=== PATIENT | female | born 1955 | race Caucasian/White ===

== ENCOUNTER 2020-10-10 11:04 | Outpatient (REF) | payer MEDICARE, SELFPAY ==
[2020-10-10 11:32] LABS: MANUAL DIFF FLAG NO
[2020-10-10 11:47] LABS: Basophils Percent Auto 0.7 % (0-2); Eosinophils Absolute Auto 0.2 X10*3/uL (0.0-0.4); Eosinophils Percent Auto 3.7 % (0-4); Hemoglobin 13.3 g/dl (12.0-16.0); Imm Gran Abs Auto 0.02 X10*3/uL (0.00-0.03); Imm Gran Pct Auto 0.4 % (0.0-0.4); Lymphocytes Absolute Auto 1.4 X10*3/uL (1.2-4.9); Lymphocytes Percent Auto 24.6 % (20-40); Mean Corpuscular HGB Conc 33.3 g/dl (31.0-35.0); Mean Corpuscular Hemoglobin 30.6 pg (27.0-33.0); Mean Platelet Volume 10.8 fL (9.4-12.3); Monocytes Absolute Auto 0.7 X10*3/uL (0.1-1.2); Monocytes Percent Auto 11.9 % (2-11); Neutrophils Absolute Auto 3.4 X10*3/uL (2.0-8.3); Neutrophils Percent Auto 58.7 % (45-73); Platelet Count 321 X10*3/uL (160-400); Red Blood Count 4.35 X10*6/uL (4.20-5.50); Red Cell Distribution Width 13.4 % (11.0-16.0); White Blood Count 5.7 X10*3/uL (4.8-10.8)
[2020-10-10 12:18] LABS: Alanine Aminotransferase 23 U/L (0-31); Albumin Level 4.3 g/dL (3.5-5.0); Alkaline Phosphatase 52 U/L (39-117); Anion Gap 15 (12-20); Aspartate Amino Transferase 26 U/L (5-31); Bilirubin Total 0.8 mg/dL (0.0-1.0); Blood Urea Nitrogen 13 mg/dL (9-16); Calcium 9.1 mg/dL (8.4-10.2); Carbon Dioxide 28 mmol/L (22-29); Chloride 100 mmol/L (96-108); Cholesterol 277 mg/dL; Estimated Glomerular Filt Rate > 60; Glucose Fasting 101 mg/dL (60-99); Glucose Urine UA NEG (NEG); HDL Cholesterol 104 mg/dL; LDL Cholesterol Calculated 158 mg/dl; Leukocyte Esterase Urine TRACE (NEG); Nitrite Urine NEG (NEG); Potassium 3.4 mmol/L (3.3-5.1); Sodium 140 mmol/L (135-145); Total Protein 7.3 g/dL (6.5-8.0); Triglycerides 75 mg/dL; Urine Blood TRACE (NEG); Urine Ketones NEG (NEG); Urine Protein NEG (NEG-TRACE)
[2020-10-10 12:23] LABS: Appearance Urine HAZY; Color Urine YELLOW
[2020-10-10 12:38] LABS: Mucus Urine TRACE /LPF; Renal Epithelial Cells Urine 2+ /LPF; Squamous Epithelial Cell Urine 2+ /LPF
== END 2020-10-10 11:05 | disposition home or self-care (01) ==
LOC: HO.LNP 11:04
PROVIDERS: PCP Internal Medicine; Visit Provider Internal Medicine
DX: Z00.00 Encounter for general adult medical examination without abnormal findings (principal); I10 Essential (primary) hypertension; M85.80 Other specified disorders of bone density and structure, unspecified site; E78.00 Pure hypercholesterolemia, unspecified; M19.90 Unspecified osteoarthritis, unspecified site; Z87.448 Personal history of other diseases of urinary system
CPT/HCPCS: 80053; 80061; 81001; 81003; 85025

== ENCOUNTER 2020-10-31 11:11 | Outpatient (REF) | payer MEDICARE, SELFPAY ==
--- NOTE | ~2020-10-31 | MM_ITS ---
EXAMINATION: MM SCREENING DIGITAL BREAST TOMOSYNTHESIS, BILATERAL CLINICAL INFORMATION: Screening. Asymptomatic. The lifetime risk of breast cancer based on the Tyrer-Cuzick Model is 7%. COMPARISON: Mammography: 07/28/2019, 07/22/2018, 05/15/2017 TECHNIQUE: Digital breast tomosynthesis is performed in both the craniocaudal and mediolateral oblique views along with computer-aided detection (CAD). Synthesized 2D images are generated from the tomosynthesis. FINDINGS: The breasts are heterogeneously dense, which may obscure small masses (ACR BI-RADS breast composition Category c). There are no significant masses, abnormal calcifications, or other abnormalities. There is fine fibronodular parenchymal pattern similar to prior studies. Parenchymal distribution is similar to prior exams. No significant changes. MM/MM tomosynthesis screening BI IMPRESSION: No mammographic evidence of malignancy. ASSESSMENT: BI-RADS 1: Negative RECOMMENDATION: Routine annual mammography screening. This patient's information was entered into a reminder system with a target due date for their next mammogram.
== END 2020-10-31 11:12 | disposition home or self-care (01) ==
LOC: HO.MAMMO 11:11
PROVIDERS: PCP Internal Medicine; Visit Provider Internal Medicine
DX: Z12.31 Encounter for screening mammogram for malignant neoplasm of breast (principal)
CPT/HCPCS: 77063; 77067

== ENCOUNTER 2021-05-18 13:29 | Outpatient (REF) | payer MEDICARE, SELFPAY ==
--- NOTE | ~2021-05-18 | MM_ITS ---
EXAMINATION: BONE DENSITOMETRY CLINICAL INDICATION: Osteopenia. COMPARISON: Previous BD dated 07/22/2018 and baseline BD dated 01/12/2011. TECHNIQUE: Using a [employer] DXA System (software version: 13.1) manufactured by [employer], dual-energy x-ray absorptiometry was performed of the lumbar spine and left hip. The images are of good technical quality. Summary results are attached. FINDINGS: AP SPINE L1-L4: Current: BMD 1.052 g/cm2, Z-score 0.7, T-score -1.1, osteopenia, 4.1% increase from previous, 2.3% increase from baseline (<5% change is not significant). Prior: BMD 1.011 g/cm2. Baseline: BMD 1.028 g/cm2. LEFT FEMUR, NECK: Current: BMD 0.821 g/cm2, Z-score 0.1, T-score -1.6, osteopenia. Prior: BMD 0.810 g/cm2. Baseline: BMD 0.853 g/cm2. LEFT FEMUR, TOTAL: Current: BMD 0.842 g/cm2, Z-score 0.2, T-score -1.3, osteopenia, 3.2% increase from previous, 0.6% decrease from baseline (<5% change is not significant). Prior: BMD 0.816 g/cm2. Baseline: BMD 0.847 g/cm2. IDENTIFIED RISK FACTORS: Menopause, Thiazide. HISTORY OF FRACTURE: None listed. MEDICATIONS: Calcium or multivitamin. Vitamin D. MM/XR DEXA axial skeleton IMPRESSION: 1. DIAGNOSIS: Osteopenia based on the lowest T-score value of -1.6 in the femoral neck applying World Health Organization criteria. 2. 10-YEAR FRACTURE RISK PREDICTION, FRAX: Major osteoporotic fracture (clinical spine, forearm, hip or shoulder) 9.2%. Hip fracture 1.3%. 3. Treatment Recommendations: NOF guidelines recommend consideration for treatment in postmenopausal women and men age 50 and older presenting with the following: -A hip or vertebral (clinical or morphometric) fracture. -T-score less than or equal to -2.5 at the femoral neck or spine after appropriate evaluation to exclude secondary causes. -Low bone mass at the hip or spine and a 10-year fracture probability by FRAX of greater than or equal to 3% for hip fracture or greater than or equal to 20% for major osteoporotic fracture based on the [place] adapted WHO algorithm. 4. Other Recommendations: All treatment decisions require clinical judgment and consideration of individual patient factors, including patient preferences, comorbidities, previous drug use, risk factors not captured in the FRAX model (e.g. frailty, falls, vitamin D deficiency, increased bone turnover, interval significant decline in bone density) and possible under or overestimation of fracture risk by FRAX. Additional medical evaluation for secondary cause of low bone mineral density may be appropriate. FUTURE SCAN RECOMMENDATION: People with diagnosed cases of osteoporosis or at high risk for fracture should have regular bone mineral density tests. For patients eligible for Medicare, routine testing is allowed once every 2 years. The testing frequency can be increased to one year for patients who have rapidly progressing disease, those who are receiving or discontinuing medical therapy to restore bone mass, or have additional risk factors.
== END 2021-05-18 13:30 | disposition home or self-care (01) ==
LOC: HO.MAMMO 13:29
PROVIDERS: PCP Internal Medicine; Visit Provider Internal Medicine
DX: Z13.820 Encounter for screening for osteoporosis (principal); M85.80 Other specified disorders of bone density and structure, unspecified site; Z78.0 Asymptomatic menopausal state; Z79.899 Other long term (current) drug therapy
CPT/HCPCS: 77080

== ENCOUNTER 2021-10-17 10:33 | Outpatient (REF) | payer MEDICARE, SELFPAY ==
[2021-10-17 10:36] LABS: MANUAL DIFF FLAG NO
[2021-10-17 10:42] LABS: Basophils Absolute Auto 0.1 X10*3/uL (0.0-0.2); Basophils Percent Auto 1.2 % (0-2); Eosinophils Absolute Auto 0.2 X10*3/uL (0.0-0.4); Eosinophils Percent Auto 3.8 % (0-4); Hematocrit 40.9 % (37.0-47.0); Hemoglobin 13.3 g/dl (12.0-16.0); Imm Gran Abs Auto 0.01 X10*3/uL (0.00-0.03); Imm Gran Pct Auto 0.2 % (0.0-0.4); Lymphocytes Absolute Auto 1.4 X10*3/uL (1.2-4.9); Lymphocytes Percent Auto 28.2 % (20-40); Mean Corpuscular HGB Conc 32.5 g/dl (31.0-35.0); Mean Corpuscular Hemoglobin 29.9 pg (27.0-33.0); Mean Corpuscular Volume 91.9 fL (80.0-98.0); Mean Platelet Volume 10.5 fL (9.4-12.3); Monocytes Absolute Auto 0.6 X10*3/uL (0.1-1.2); Monocytes Percent Auto 12.7 % (2-11); Neutrophils Absolute Auto 2.7 x10*3/uL (2.0-8.3); Neutrophils Percent Auto 53.9 % (45-73); Platelet Count 300 X10*3/uL (160-400); Red Blood Count 4.45 X10*6/uL (4.20-5.50); Red Cell Distribution Width 13.4 % (11.0-16.0)
[2021-10-17 11:06] LABS: Alanine Aminotransferase 22 U/L (0-31); Albumin Level 4.1 g/dL (3.5-5.0); Alkaline Phosphatase 47 U/L (39-117); Anion Gap 10 (12-20); Aspartate Amino Transferase 26 U/L (5-31); Bilirubin Total 0.7 mg/dL (0.0-1.0); Blood Urea Nitrogen 11 mg/dL (9-16); Calcium 9.7 mg/dL (8.4-10.2); Carbon Dioxide 30 mmol/L (22-29); Chloride 101 mmol/L (96-108); Cholesterol 287 mg/dL; Estimated Glomerular Filt Rate > 60; Glucose Fasting 96 mg/dL (60-99); HDL Cholesterol 92 mg/dL; LDL Cholesterol Calculated 182 mg/dl; Potassium 4.2 mmol/L (3.3-5.1); Sodium 137 mmol/L (135-145); Total Protein 7.1 g/dL (6.5-8.0); Triglycerides 67 mg/dL
[2021-10-17 11:18] LABS: Appearance Urine HAZY; Color Urine YELLOW; Glucose Urine UA NEG (NEG); Leukocyte Esterase Urine TRACE (NEG); Nitrite Urine NEG (NEG); PH 7.5 (5.0-8.0); Urine Blood TRACE (NEG); Urine Ketones NEG (NEG); Urine Protein NEG (NEG-TRACE)
[2021-10-17 11:50] LABS: Renal Epithelial Cells Urine 2+ /LPF; Squamous Epithelial Cell Urine 1+ /LPF
== END 2021-10-17 10:34 | disposition home or self-care (01) ==
LOC: HO.LNP 10:33
PROVIDERS: Visit Provider Internal Medicine
DX: Z00.00 Encounter for general adult medical examination without abnormal findings (principal); E78.00 Pure hypercholesterolemia, unspecified; I10 Essential (primary) hypertension
CPT/HCPCS: 80053; 80061; 81001; 81003; 85025

== ENCOUNTER 2021-11-07 11:15 | Outpatient (REF) | payer MEDICARE, SELFPAY ==
--- NOTE | ~2021-11-07 | MM_ITS ---
EXAMINATION: MM SCREENING DIGITAL BREAST TOMOSYNTHESIS, BILATERAL CLINICAL INFORMATION: Screening. Asymptomatic. The lifetime risk of breast cancer based on the Tyrer-Cuzick Model is 4%. COMPARISON: Mammography: 10/31/2020 and prior studies dating back to 12/24/2013. TECHNIQUE: Digital breast tomosynthesis is performed in both the craniocaudal and mediolateral oblique views along with computer-aided detection (CAD). Synthesized 2D images are generated from the tomosynthesis. FINDINGS: The breasts are heterogeneously dense, which may obscure small masses (ACR BI-RADS breast composition Category c). There is a fibronodular parenchymal pattern similar to prior studies. There is no developing density or interval mass or architectural abnormality. No abnormal calcifications. The skin contours are smooth. No significant changes from prior studies. MM/MM tomosynthesis screening BI IMPRESSION: No mammographic evidence of malignancy. ASSESSMENT: BI-RADS 1: Negative RECOMMENDATION: Routine annual mammography screening. This patient's information was entered into a reminder system with a target due date for their next mammogram.
== END 2021-11-07 11:16 | disposition home or self-care (01) ==
LOC: HO.MAMMO 11:15
PROVIDERS: PCP Internal Medicine; Visit Provider Internal Medicine
DX: Z12.31 Encounter for screening mammogram for malignant neoplasm of breast (principal)
CPT/HCPCS: 77063; 77067

== ENCOUNTER 2022-10-23 11:22 | Outpatient (REF) | payer MEDICARE, SELFPAY ==
[2022-10-23 11:24] LABS: MANUAL DIFF FLAG NO
[2022-10-23 11:38] LABS: Appearance Urine Clear; Color Urine Yellow; Glucose Urine UA Negative (Negative); Leukocyte Esterase Urine Negative (Negative); Nitrite Urine Negative (Negative); PH >= 9.0 (5.0-9.0); Specific Gravity - Urine 1.015 (1.005-1.025); UMIC TRIGGER UACC YES; Urine Blood Trace (Negative); Urine Ketones Negative (Negative); Urine Protein Negative (Neg-Trace)
[2022-10-23 11:45] LABS: Bacteria Urine None Seen (None Seen); Hyaline Casts Urine 0-2 /LPF (0-2); Squamous Epithelial Cell Urine 0-2 /HPF (0-2); WBC Urine 0-5 /HPF (0-5)
[2022-10-23 11:46] LABS: Basophils Absolute Auto 0.1 X10*3/uL (0.0-0.2); Eosinophils Absolute Auto 0.2 X10*3/uL (0.0-0.4); Eosinophils Percent Auto 3.7 % (0-4); Hematocrit 41.1 % (37.0-47.0); Hemoglobin 13.6 g/dl (12.0-16.0); Imm Gran Abs Auto 0.01 X10*3/uL (0.00-0.03); Imm Gran Pct Auto 0.2 % (0.0-0.4); Lymphocytes Absolute Auto 1.3 X10*3/uL (1.2-4.9); Lymphocytes Percent Auto 25.5 % (20-40); Mean Corpuscular HGB Conc 33.1 g/dl (31.0-35.0); Mean Corpuscular Hemoglobin 29.9 pg (27.0-33.0); Mean Corpuscular Volume 90.3 fL (80.0-98.0); Mean Platelet Volume 11.4 fL (9.4-12.3); Monocytes Absolute Auto 0.6 X10*3/uL (0.1-1.2); Monocytes Percent Auto 12.4 % (2-11); Neutrophils Percent Auto 57.2 % (45-73); Platelet Count 318 X10*3/uL (160-400); Red Blood Count 4.55 X10*6/uL (4.20-5.50); Red Cell Distribution Width 13.2 % (11.0-16.0); White Blood Count 5.2 X10*3/uL (4.8-10.8)
[2022-10-23 12:57] LABS: Alanine Aminotransferase 20 U/L (0-31); Albumin Level 4.2 g/dL (3.5-5.0); Alkaline Phosphatase 47 U/L (39-117); Anion Gap 13 (12-20); Aspartate Amino Transferase 24 U/L (5-31); Bilirubin Total 0.7 mg/dL (0.0-1.0); Blood Urea Nitrogen 12 mg/dL (9-16); Calcium 9.2 mg/dL (8.4-10.2); Carbon Dioxide 29 mmol/L (22-29); Chloride 99 mmol/L (96-108); Cholesterol 272 mg/dL; Estimated Glomerular Filt Rate > 60; Glucose Fasting 98 mg/dL (60-99); HDL Cholesterol 94 mg/dL; LDL Cholesterol Calculated 162 mg/dl; Potassium 4.1 mmol/L (3.3-5.1); Sodium 137 mmol/L (135-145); Triglycerides 80 mg/dL
== END 2022-10-23 11:23 | disposition home or self-care (01) ==
LOC: HO.LNP 11:22
PROVIDERS: Visit Provider Internal Medicine
DX: Z00.00 Encounter for general adult medical examination without abnormal findings (principal); I10 Essential (primary) hypertension; E78.00 Pure hypercholesterolemia, unspecified
CPT/HCPCS: 80053; 80061; 81001; 85025

== ENCOUNTER 2022-11-13 11:20 | Outpatient (REF) | payer MEDICARE, SELFPAY ==
--- NOTE | ~2022-11-13 | MM_ITS ---
EXAMINATION: MM SCREENING DIGITAL BREAST TOMOSYNTHESIS, BILATERAL CLINICAL INFORMATION: Screening. Asymptomatic. The lifetime risk of breast cancer based on the Tyrer-Cuzick Model is 3%. COMPARISON: Mammography: 09/07/2021, 10/31/2020, 07/28/2019 TECHNIQUE: Digital breast tomosynthesis is performed in both the craniocaudal and mediolateral oblique views along with computer-aided detection (CAD). Synthesized 2D images are generated from the tomosynthesis. FINDINGS: The breasts are heterogeneously dense, which may obscure small masses (ACR BI-RADS breast composition Category c). There is fine fibronodular parenchymal pattern similar to prior studies. Breast tissue composition borders on average fibroglandular. There is no developing density or architectural abnormality. There are no significant masses, abnormal calcifications, or other abnormalities. The axilla and skin contours are unremarkable. No significant changes from prior exams. MM/MM tomosynthesis screening BI IMPRESSION: No mammographic evidence of malignancy. ASSESSMENT: BI-RADS 1: Negative RECOMMENDATION: Routine annual mammography screening. This patient's information was entered into a reminder system with a target due date for their next mammogram.
== END 2022-11-13 11:21 | disposition home or self-care (01) ==
LOC: HO.MAMMO 11:20
PROVIDERS: PCP Internal Medicine; Visit Provider Internal Medicine
DX: Z12.31 Encounter for screening mammogram for malignant neoplasm of breast (principal)
CPT/HCPCS: 77063; 77067

== ENCOUNTER 2023-11-14 12:07 | Outpatient (REF) | payer MEDICARE, SELFPAY ==
[2023-11-14 12:11] LABS: MANUAL DIFF FLAG NO
[2023-11-14 12:20] LABS: Basophils Absolute Auto 0.1 X10*3/uL (0.0-0.2); Eosinophils Absolute Auto 0.3 X10*3/uL (0.0-0.4); Eosinophils Percent Auto 5.2 % (0-4); Hematocrit 39.7 % (37.0-47.0); Hemoglobin 13.2 g/dl (12.0-16.0); Imm Gran Abs Auto 0.01 X10*3/uL (0.00-0.03); Imm Gran Pct Auto 0.2 % (0.0-0.4); Lymphocytes Absolute Auto 1.3 X10*3/uL (1.2-4.9); Mean Corpuscular HGB Conc 33.2 g/dl (31.0-35.0); Mean Corpuscular Hemoglobin 30.5 pg (27.0-33.0); Mean Corpuscular Volume 91.7 fL (80.0-98.0); Mean Platelet Volume 10.4 fL (9.4-12.3); Monocytes Absolute Auto 0.7 X10*3/uL (0.1-1.2); Monocytes Percent Auto 14.5 % (2-11); Neutrophils Absolute Auto 2.5 x10*3/uL (2.0-8.3); Neutrophils Percent Auto 52.1 % (45-73); Platelet Count 312 X10*3/uL (160-400); Red Blood Count 4.33 X10*6/uL (4.20-5.50); Red Cell Distribution Width 13.9 % (11.0-16.0); White Blood Count 4.8 X10*3/uL (4.8-10.8)
[2023-11-14 12:27] LABS: Appearance Urine Clear; Color Urine Yellow; Glucose Urine UA Negative (Negative); Leukocyte Esterase Urine Negative (Negative); Nitrite Urine Negative (Negative); UMIC TRIGGER UACC YES; Urine Blood Trace (Negative); Urine Ketones Negative (Negative); Urine Protein Negative (Neg-Trace)
[2023-11-14 12:34] LABS: Bacteria Urine None Seen (None Seen); Hyaline Casts Urine 0-2 /LPF (0-2); Squamous Epithelial Cell Urine 0-2 /HPF (0-2); WBC Urine 0-5 /HPF (0-5)
[2023-11-14 13:50] LABS: Alanine Aminotransferase 24 U/L (0-31); Alkaline Phosphatase 46 U/L (39-117); Anion Gap 12 (12-20); Aspartate Amino Transferase 27 U/L (5-31); Bilirubin Total 0.5 mg/dL (0.0-1.0); Blood Urea Nitrogen 13 mg/dL (9-16); Calcium 9.2 mg/dL (8.4-10.2); Carbon Dioxide 28 mmol/L (22-29); Chloride 100 mmol/L (96-108); Cholesterol 263 mg/dL (<200); Estimated Glomerular Filt Rate > 60; Glucose Fasting 100 mg/dL (60-99); HDL Cholesterol 91 mg/dL (>40); LDL Cholesterol Calculated 157 mg/dL (<100); Potassium 3.7 mmol/L (3.3-5.1); Sodium 136 mmol/L (135-145); Total Protein 7.2 g/dL (6.5-8.0); Triglycerides 79 mg/dL (<150)
== END 2023-11-14 12:08 | disposition home or self-care (01) ==
LOC: HO.LNP 12:07
PROVIDERS: Visit Provider Internal Medicine
DX: Z00.00 Encounter for general adult medical examination without abnormal findings (principal); I10 Essential (primary) hypertension; E78.00 Pure hypercholesterolemia, unspecified
CPT/HCPCS: 80053; 80061; 81001; 85025

== ENCOUNTER 2023-11-19 11:23 | Outpatient (REF) | payer MEDICARE, SELFPAY | END 2023-11-19 11:24 | disposition home or self-care (01) | LOC: HO.MAMMO 11:23 | PROVIDERS: PCP Internal Medicine; Visit Provider Internal Medicine | DX: Z12.31 Encounter for screening mammogram for malignant neoplasm of breast (principal) | CPT/HCPCS: 77063; 77067 ==

== ENCOUNTER → 2023-11-19 11:30 | Outpatient (BNV) | payer MEDICARE, SELFPAY | PROVIDERS: PCP Internal Medicine; Visit Provider Radiology Diagnostic Radiology | DX: Z12.31 Encounter for screening mammogram for malignant neoplasm of breast (principal) | CPT/HCPCS: 77063; 77067 ==

== ENCOUNTER → 2023-12-17 08:35 | Outpatient (REF) | payer MEDICARE, SELFPAY ==
--- NOTE | 2023-12-17 08:38 | CA_ITS ---
Acquisition Time: 2023-12-17 08:56:07 Total Exercise Time: 00:09:01 Test Indications: HTN Medications: SEE H Protocol: MILLER Max HR: 133 BPM 88% of Pred: 150 BPM Max BP: 170/068 mmHG Max Work Load: 10.1 METS Exercise stress test with exercise 9 min 1 sec of Miller protocol, achieving 88% MPHR, without anginal symptoms, without arrythmia, with normotensive response to exercise, with nonspecific ST abnormality at baseline then up to 1.5mm horizontal ST depression inferiorly and V3-V6 with exercise, that improves quickly in recovery then becomes downsloping STs in those leads and gradualy return to baseline. Test reviewed with Dr Fitzgerald. Report called to PCP office. Recommend stress echocardiogram for further evaluation. Referred By: Jesus Manuel Garcia Overread By: CHONG GUPTA
== END ==
LOC: HO.CARD 08:35
PROVIDERS: PCP Internal Medicine; Visit Provider Internal Medicine
DX: R07.89 Other chest pain (principal)
CPT/HCPCS: 93017

== ENCOUNTER → 2023-12-17 08:38 | Outpatient (BNV) | payer MEDICARE, SELFPAY | PROVIDERS: PCP Internal Medicine; Visit Provider Nurse Practitioner Family | DX: I10 Essential (primary) hypertension (principal); R94.31 Abnormal electrocardiogram [ECG] [EKG] | CPT/HCPCS: 93016; 93018 ==

== ENCOUNTER 2024-01-31 08:29 | Outpatient (AMB) | payer MEDICARE, SELFPAY ==
[2024-01-31 08:35] VITALS: BP 138/70; PULSE 59; BMI 22.1
--- NOTE | 2024-01-31 08:35 | A.OFFVIS_ITS ---
Vital Signs 01/31/24 08:35 Height 5 ft 6 in Weight 136 lb 10.986 oz BMI 22.1 BP 138/70 Blood Pressure Location Lt brachial Position Sitting Pulse 59 Pulse Source Monitor Intake Visit Reasons: Tightness in chest Allergies Penicillins Allergy (Severe, Verified 01/31/24 08:48) Palpitations procaine [From Novocain] Allergy (Severe, Verified 01/31/24 08:49) Palpitations ibuprofen Allergy (Mild, Verified 01/31/24 08:48) Palpitations sodium Adverse Reaction (Severe, Verified 01/31/24 08:48) Nausea Medication List - Last Reconciled 01/31/24 by Karuna Harley NP-C hydrochlorothiazide 25 mg PO DAILY lorazepam 1 mg PO PRN metoprolol tartrate 25 mg PO TID HPI HPI Tightness in chest: Details: Katerine is a 68-year-old female with past medical history of hypertension who recently had an episode of chest pressure during exercise who then had exercise stress test which was equivocal for ischemia. She was referred to Cardiology in follow-up. Today she presents for cardiology consultation. She describes having chest pressure on 1 day when doing the stationary bike. She was trying to keep up with the speed of her friend. Whenever she would go fast she would get a pressure/tightness in the chest. The symptom would resolve when she slowed down. She has not pushed herself like that again. She has not had recurrent symptoms. She denies shortness of breath, PND, orthopnea or edema. No lightheadedness, presyncope, syncope, falls. She has no cardiac history. She states her father had a pacemaker at age 80 and a CVA at age 81. No other cardiac disease in her family. She is a nonsmoker and occasional alcohol use. She goes to the gym 2-3 times weekly and does yoga 2 times weekly. She is compliant with her medications. [facility] Medical History Cataract Meniere disease Family History Father Pacemaker Sister High blood pressure Social History Alcohol intake: current Alcohol intake frequency: holidays/special occasions only Comment: WINE Patient Tobacco Use Status: Never used Tobacco Review of Systems Const All systems reviewed & are unremarkable except as noted in HPI and below Reports fatigue (Tires easily with activity in the last 6 months) and Denies weakness ENT Denies dizziness Card Details: Episode of chest pressure with exertion Denies chest pain, Denies chest pain at rest, Reports chest pain with activity, Denies syncope, Denies rapid heart rate, Denies pedal edema, Denies edema, Denies leg edema, Denies lightheadedness, Denies palpitations, Denies dyspnea, Denies dyspnea on exertion and Denies orthopnea Resp Denies cough, Denies dyspnea and Denies dyspnea on exertion GI Denies hematochezia and Denies change in stool character Musc Denies abnormal gait, Denies muscle cramps, Denies muscle weakness, Denies numbness, Denies radiating pain into limb and Denies tingling Neuro Denies abnormal gait, Denies dizziness, Denies syncope, Denies numbness, Denies tingling and Denies weakness Endo Reports fatigue (Tires easily with activity in the last 6 months) and Denies palpitations Physical Exam Vital Signs: Last Vital Signs Pulse 59 01/31/24 08:35 BP 138/70 01/31/24 08:35 BMI result Body Mass Index 22.1 Const General: cooperative, healthy appearing, comfortable and no acute distress Orientation/consciousness: patient oriented x3 Neck Neck: Yes normal visual inspection and Yes no JVD Resp Effort & Inspection: normal respiratory effort Auscultation: clear to auscultation bilaterally, no crackles, no rales, no rhonchi and no wheezes Cardio Jugular venous distension: no JVD Rate: regular rate Rhythm: regular rhythm Heart sounds: S1 normal heart sound present, S2 normal heart sound present, no murmurs and no rubs Neuro General: patient oriented x3 Extrem General: Yes normal to inspection and No no pedal edema Psych Appearance: grossly normal Mental Status: mental status grossly normal Speech and movement: Normal speech and movement present Office Procedures EKG Details: Today read by me, sinus bradycardia, first-degree AV block, right axis deviation, nonspecific ST abnormality, rate 59, QTC 401 milliseconds. [id number], Complete Assessment & Plan Assessment & Plan (1) Chest discomfort: Code(s): R07.89 - Other chest pain Category: Medical Plan: Report of chest discomfort as described above occurring on 1 day during physical activity. She tells me she has not had recurrent symptoms like that. She has no cardiac history. Cardiac risk factors of hypertension, age. She did have a stress test on 12/17/2023 showing exercise 9 minutes with no anginal symptoms with EKG changes that are suggestive of ischemia. A recent calcium score was completed and her score was 0. This is very reassuring. EKG done today shows normal sinus rhythm, first-degree AV block, nonspecific ST abnormality with slight downsloping in the far lateral leads, rate 59, QTC 401 milliseconds. Will check a stress echocardiogram to further evaluate for ischemia. Will check an echocardiogram to assess for structural heart disease. Signs and symptoms of angina reviewed with her. Emergency care if ever needed for symptoms. Activity as tolerated. Cardiology follow-up 6 weeks, sooner if needed. (2) HTN (hypertension): Code(s): I10 - Essential (primary) hypertension Category: Medical Plan: Well controlled at this time. Continue metoprolol and hydrochlorothiazide. No med changes made. (3) Abnormal EKG: Code(s): R94.31 - Abnormal electrocardiogram [ECG] [EKG] Category: Medical Plan: As above Plan Time spent on chart review, documentation, intravenous assessment Orders: Orders CA echo transthoracic complete Today I10 - Essential (primary) hypertension, R07.89 - Other chest pain, R94.31 - Abnormal electrocardiogram [ECG] [EKG] CA echo stress exercise Today R07.89 - Other chest pain, R94.31 - Abnormal electrocardiogram [ECG] [EKG] Coding Level of Care Code New Pt Level 4 (56261) Diagnoses Chest discomfort R07.89 HTN (hypertension) I10 Abnormal EKG R94.31 CPT Codes EKG - CPT: 20057-[id number], Complete ([id number]) Time Spent (min) 36
== END 2024-01-31 09:24 | disposition home or self-care (01) ==
PROVIDERS: PCP Internal Medicine; Visit Provider Nurse Practitioner Family
DX: R07.89 Other chest pain (principal); I10 Essential (primary) hypertension; R94.31 Abnormal electrocardiogram [ECG] [EKG]
CPT/HCPCS: 93010; 99214

== ENCOUNTER → 2024-01-31 08:29 | Outpatient (BNVA) | payer MEDICARE, SELFPAY | PROVIDERS: PCP Internal Medicine; Visit Provider Nurse Practitioner Family | DX: R94.31 Abnormal electrocardiogram [ECG] [EKG] (principal); R07.89 Other chest pain; I10 Essential (primary) hypertension; I44.0 Atrioventricular block, first degree; I51.7 Cardiomegaly | CPT/HCPCS: 93005; 99212 ==

== ENCOUNTER → 2024-03-18 09:56 | Outpatient (REF) | payer MEDICARE, SELFPAY ==
--- NOTE | 2024-03-18 09:58 | CA_ITS ---
Transthoracic Echocardiogram Patient (Last, First, Middle): Katerine Cormier A Gender: Female Date of : 1955 Age: 69 Procedure Date: 03/18/2024 Procedure Type: Transthoracic Echocardiogram Location: OP Height: 165.1 cm Weight: 59.88 kg BSA: 1.66 m2 Heart Rate: bpm BP: 138 / 68 mmHg Target Aircraft Technician: TO Referring MD: Karuna MIX Utility Manager: Reddy Paige MD Symptoms: R07.89 - Other chest pain Study Quality: Fair/patient declines contrast ECG Rhythm: Sinus Conclusions: - 1. Normal LV ejection fraction 60 65% with impaired relaxation filling pattern 2. Mild mitral regurgitation 3. No gross pericardial effusion Findings Procedure Information The patient declines contrast. Left Ventricle Normal left ventricular size, thickness, and systolic function. The visually estimated ejection fraction is between 60-65%. Spectral Doppler is indicative of an impaired relaxation filling pattern. E/E prime ratio is between 8 and 15 consistent with indeterminate filling pressures. Right Ventricle Normal right ventricular cavity size and systolic function. Atria The left atrium is normal in size. There is no evidence of interatrial shunt. The right atrium is normal in size. Aortic Valve Normal aortic valve structure and function. There is no aortic valve stenosis. There is no aortic valve regurgitation. Mitral Valve There is mild anterior and posterior mitral leaflet thickening. There is mild mitral valve regurgitation. There is no mitral valve stenosis. Pulmonic Valve The pulmonic valve is likely normal. Tricuspid Valve Likely normal tricuspid valve structure and function. Tricuspid regurgitation envelope is inadequate for calculation of right ventricular systolic pressure. Normal right atrial pressure. Great Vessels All visible segments of the aorta are normal in size. The pulmonary artery was not well visualized. Venous The inferior vena cava is normal in size and collapses greater than 50% with inspiration. Pericardium/Pleural There is no evidence of pericardial effusion. Prior Study Comparison No prior study available for comparison. Measurements 2D Linear Measurements IVSd: 0.85 0.6-0.9/0.6-1.0 cm LVIDd: 4.40 3.9-5.3/4.2-5.9 cm LVIDd Index: 2.65 2.4-3.2/2.2-3.1 cm/m2 LVIDs: 3.21 2.0-3.6 cm LVPWd: 0.73 0.7-1.1 cm LA Diam: 3.20 2.7-3.8/3.0-4.0 cm LAIDs Index: 1.93 1.5-2.3 cm/m2 LV Mass: 134.59 67-162/88-224 g LV Mass Index: 81.08 43-95/49-115 g/m2 LVOT Diam: 2.10 3.0+(-)1.3 cm Mitral Valve MV Pk E: 0.81 MV PK A: 0.54 MV Decel Time: 195.00 E/A: 1.50 E'Lateral: 7.62 E'Medial: 5.66 E/E' Med: 14.30 E/E' Lat: 10.60 PHT: 57.00 MVA PHT: 3.86 Decel Gulf: 4.15 Aortic Valve AoV Pk Shaun: 0.93 AoV Mn Shaun: 0.69 AoV VTI: 0.27 AoV Pk Grad: 3.00 Aov Mn Grad: 2.00 HIEN Cont.VTI: 2.17 LVOT LVOT Pk Shaun: 0.63 LVOT Mn Shaun: 0.42 LVOT VTI: 0.17 LVOT Pk Grad: 2.00 LVOT Mn Grad: 1.00 LVOT Diam: 2.10 LVOT Area: 3.46 Diastolic Function MV Pk E: 0.81 MV Pk A: 0.54 E/A: 1.50 E'Medial: 5.66 E/E' Med: 14.30 E' Laterial: 7.62 E/E' Lat: 10.60 Right Ventricle TAPSE (mm): 17.70 TVS' Shaun: 10.40 Tricuspid Valve RA Press: 3.00 Great Vessels Aorta Sinus of Valsalva: 3.11 2.0-3.5 cm Ao Asc: 3.00 2.1-3.4 cm Updated in Other Vendor System with Status of Final Reddy Paige MD electronically signed on 03/19/2024 12:04:36 PM with status of Final
== END ==
LOC: HO.CARD 09:56
PROVIDERS: PCP Internal Medicine; Visit Provider Nurse Practitioner Family
DX: R07.89 Other chest pain (principal); R94.31 Abnormal electrocardiogram [ECG] [EKG]; I10 Essential (primary) hypertension
CPT/HCPCS: 93306

== ENCOUNTER → 2024-03-18 09:58 | Outpatient (BNV) | payer MEDICARE, SELFPAY | PROVIDERS: PCP Internal Medicine; Visit Provider Internal Medicine Cardiovascular Disease | DX: I34.0 Nonrheumatic mitral (valve) insufficiency (principal) | CPT/HCPCS: 93306 ==

== ENCOUNTER → 2024-03-26 10:59 | Outpatient (REF) | payer MEDICARE, SELFPAY ==
--- NOTE | 2024-03-26 11:01 | CA_ITS ---
Acquisition Time: 2024-03-26 11:16:01 Total Exercise Time: 00:10:00 Test Indications: Chest Pain Medications: HCTZ METOPROLOL LORAZAPAM Protocol: MILLER Max HR: 150 BPM 100% of Pred: 149 BPM Max BP: 178/060 mmHG Max Work Load: 11.7 METS Exercise stress test exercise 10 min of Miller protocol achieving 101% MPHR, without anginal symptoms, with isolated PACs and PVC, with normotensive response to exercise, with ST depressions in leads 2, 3, aVF, V5-V6 and upsloping in leads aVR and V1 V2, Echo images obtained by [employer] at rest and immediately post peak exercise. Definity contrast used. Test reviewed with Dr. Cabrera Referred By: Karuna Harley Overread By: Sheri Cueva
== END ==
LOC: HO.CARD 10:59
PROVIDERS: PCP Internal Medicine; Visit Provider Nurse Practitioner Family
DX: R07.89 Other chest pain (principal); R94.31 Abnormal electrocardiogram [ECG] [EKG]
CPT/HCPCS: 93350; Q9957

== ENCOUNTER → 2024-03-26 11:01 | Outpatient (BNV) | payer MEDICARE, SELFPAY | PROVIDERS: PCP Internal Medicine; Visit Provider Nurse Practitioner | DX: R07.9 Chest pain, unspecified (principal); I49.3 Ventricular premature depolarization; I49.1 Atrial premature depolarization | CPT/HCPCS: 93016; 93018; 93350; 93352 ==

== ENCOUNTER 2024-03-30 12:48 | Outpatient (AMB) | payer MEDICARE, SELFPAY ==
--- NOTE | 2024-03-30 12:54 | MHC.OFFVIS ---
Vital Signs 03/30/24 12:55 Height 5 ft 6 in Weight 138 lb 0.15 oz BMI 22.3 BP 132/60 Blood Pressure Location Lt brachial Position Sitting Pulse 57 Pulse Source Pulse Oximeter Intake Visit Reasons: 6 wk follow up Measurement Coordinator Required: No Allergies Penicillins Allergy (Severe, Verified 03/30/24 12:57) Palpitations procaine [From Novocain] Allergy (Severe, Verified 03/30/24 12:57) Palpitations ibuprofen Allergy (Mild, Verified 03/30/24 12:57) Palpitations sodium Adverse Reaction (Severe, Verified 03/30/24 12:57) Nausea Medication List - Last Reconciled 03/30/24 by Karuna Harley NP-C hydrochlorothiazide 25 mg PO DAILY lorazepam 1 mg PO PRN metoprolol tartrate 25 mg PO TID HPI HPI 6 wk follow up: Details: Katerine is a 69-year-old female with past medical history of hypertension who recently had an episode of chest pressure during exercise who then had exercise stress test which was equivocal for ischemia. She was referred to Cardiology. On last visit a echocardiogram and stress echo were ordered and she now presents for follow-up. Today she reports that she has been doing well since her last visit in January. She has not had any recurrent chest discomfort. She tells me she has not been doing the exercise like she had been in the past. She was on her stationary bike when she developed the prior episode of chest pressure. She did not have chest discomfort when she was on the treadmill for her 2 stress tests. She denies shortness of breath , PND, orthopnea or edema. No lightheadedness, presyncope, syncope, falls. She has no cardiac history. She is a lifelong nonsmoker and occasional social alcohol use. She typically goes to the gym 2-3 times weekly and does yoga 2 times weekly. She is compliant with her medications. is present. [facility], [facility] Medical History Cataract Meniere disease Family History Father Pacemaker Sister High blood pressure Social History Alcohol intake: current Alcohol intake frequency: holidays/special occasions only Comment: WINE Patient Tobacco Use Status: Never used Tobacco Review of Systems Const All systems reviewed & are unremarkable except as noted in HPI and below ENT Denies dizziness Card Denies chest pain, Denies chest pain at rest, Denies chest pain with activity, Denies rapid heart rate, Denies pedal edema, Denies edema, Denies leg edema, Denies lightheadedness, Denies palpitations, Denies dyspnea, Denies dyspnea on exertion and Denies orthopnea Resp Denies cough, Denies dyspnea and Denies dyspnea on exertion GI Denies hematochezia and Denies change in stool character Musc Denies abnormal gait, Denies limited range of motion, Denies muscle cramps, Denies muscle weakness, Denies numbness, Denies radiating pain into limb, Denies stiffness and Denies tingling Neuro Denies abnormal gait, Denies dizziness, Denies numbness and Denies tingling Endo Denies palpitations Physical Exam Vital Signs: Last Vital Signs Pulse 57 03/30/24 12:55 BP 132/60 03/30/24 12:55 BMI result Body Mass Index 22.3 Const General: cooperative, healthy appearing, comfortable and no acute distress Orientation/consciousness: patient oriented x3 Neck Neck: Yes normal visual inspection Resp Effort & Inspection: normal respiratory effort Auscultation: clear to auscultation bilaterally, no crackles, no rales, no rhonchi and no wheezes Cardio Jugular venous distension: no JVD Rate: regular rate Rhythm: regular rhythm Heart sounds: S1 normal heart sound present, S2 normal heart sound present, no murmurs and no rubs Neuro General: patient oriented x3 Extrem General: Yes normal to inspection, No no pedal edema and No calf tenderness Psych Appearance: grossly normal Mental Status: mental status grossly normal Speech and movement: Normal speech and movement present Assessment & Plan Assessment & Plan (1) Chest discomfort: Code(s): R07.89 - Other chest pain Category: Medical Plan: Report of an episode of chest pressure when using her exercise bike on 1 occasion a few months ago. She tells me she has not had recurrent symptoms since that time. She has no cardiac history. Cardiac risk factors of hypertension, age. She did have a stress test on 12/17/2023 showing exercise 9 minutes with no anginal symptoms with EKG changes that are suggestive of ischemia. A recent calcium score was completed and her score was 0. This is very reassuring. EKG done last visit shows normal sinus rhythm, first-degree AV block, nonspecific ST abnormality with slight downsloping in the far lateral leads, rate 59, QTC 401 milliseconds. An echocardiogram was done on 03/18/2024 showing EF 60-65%, impaired relaxation, mild MR, no reported regional wall motion abnormalities. A stress echocardiogram was done on 03/26/2024 with exercise 10 minutes, no anginal symptoms, with EKG changes noted however no echo evidence of ischemia, diastolic dysfunction or pulmonary hypertension. Test results reviewed with her ideal. She has low likely illness of having obstructive coronary artery disease. Her EKG changes seen during activity could be false-positive. Informed her she may resume her normal exercise and activity program. If she does have recurrent chest discomfort with exertion then will plan to do a CTA of the coronary arteries. She is agreeable to this plan. Signs and symptoms of angina reviewed with her. Cardiology follow-up for reassessment in 6 months, sooner if needed. (2) HTN (hypertension): Code(s): I10 - Essential (primary) hypertension Category: Medical Plan: Well controlled at this time. Continue metoprolol and hydrochlorothiazide. No med changes made. (3) Abnormal EKG: Code(s): R94.31 - Abnormal electrocardiogram [ECG] [EKG] Category: Medical Plan: As above Plan Time spent on chart review, documentation, intravenous assessment Coding Level of Care Code Est Pt Level 3 (63590) Diagnoses Chest discomfort R07.89 HTN (hypertension) I10 Abnormal EKG R94.31 Time Spent (min) 24
[2024-03-30 12:55] VITALS: BP 132/60; PULSE 57; BMI 22.3
== END 2024-03-30 13:23 | disposition home or self-care (01) ==
PROVIDERS: PCP Internal Medicine; Referring Provider Internal Medicine; Visit Provider Nurse Practitioner Family
DX: R07.89 Other chest pain (principal); I10 Essential (primary) hypertension; R94.31 Abnormal electrocardiogram [ECG] [EKG]
CPT/HCPCS: 99213

== ENCOUNTER → 2024-03-30 12:48 | Outpatient (BNVA) | payer MEDICARE, SELFPAY | PROVIDERS: PCP Internal Medicine; Visit Provider Nurse Practitioner Family | DX: R07.89 Other chest pain (principal); R94.31 Abnormal electrocardiogram [ECG] [EKG]; I10 Essential (primary) hypertension | CPT/HCPCS: 99212 ==

== ENCOUNTER 2024-10-15 12:52 | Outpatient (AMB) | payer MEDICARE, SELFPAY ==
[2024-10-15 12:55] VITALS: BP 138/60; PULSE 57; BMI 22.4
--- NOTE | 2024-10-15 12:55 | MHC.OFFVIS ---
Vital Signs 10/15/24 12:55 Height 5 ft 6 in Weight 138 lb 14.259 oz BMI 22.4 BP 138/60 Blood Pressure Location Lt brachial Position Sitting Pulse 57 Pulse Source Pulse Oximeter Intake Visit Reasons: 6 mth f/up Allergies Penicillins Allergy (Severe, Verified 10/15/24 12:58) Palpitations procaine [From Novocain] Allergy (Severe, Verified 10/15/24 12:58) Palpitations ibuprofen Allergy (Mild, Verified 10/15/24 12:58) Palpitations sodium Adverse Reaction (Severe, Verified 10/15/24 12:58) Nausea Medication List - Last Reconciled 10/15/24 by Karuna Harley, [employer] hydrochlorothiazide 25 mg PO DAILY lorazepam 1 mg PO PRN metoprolol tartrate 25 mg PO TID HPI HPI 6 mth f/up: Details: Katerine is a 69-year-old female with past medical history of hypertension who previously reported an episode of chest pressure during exercise who underwent cardiac testing without finding of CAD. Have abnormal EKGs with exercise stress test however no echo evidence of ischemia. She now presents for follow-up. Today she reports that she has been doing well since her last visit 6 months ago. She has not had any recurrent chest discomfort. She goes to the gym routinely and does stationary bike, treadmill and goes for hikes. She also does yoga 2 times weekly. She has no concerning symptoms. She has been taking her metoprolol t.i.d. which works for her. She is not interested in changing this pattern. She denies shortness of breath , PND, orthopnea or edema. No lightheadedness, presyncope, syncope, falls. [facility] Medical History Cataract Meniere disease Family History Father Pacemaker Sister High blood pressure Social History Alcohol intake: current Alcohol intake frequency: holidays/special occasions only Comment: WINE Patient Tobacco Use Status: Never used Tobacco Review of Systems ENT Reports dizziness Card Denies chest pain, Denies chest pain at rest, Denies chest pain with activity, Denies rapid heart rate, Denies pedal edema, Denies edema, Denies leg edema, Denies lightheadedness, Denies palpitations, Denies dyspnea, Denies dyspnea on exertion and Denies orthopnea Resp Denies cough, Denies dyspnea and Denies dyspnea on exertion GI Denies hematochezia and Denies change in stool character Musc Denies abnormal gait, Reports limited range of motion, Reports muscle cramps, Denies muscle weakness, Denies numbness, Denies radiating pain into limb, Denies stiffness and Denies tingling Neuro Denies abnormal gait, Reports dizziness, Denies numbness and Denies tingling Endo Denies palpitations Physical Exam Vital Signs: BMI result Body Mass Index 22.4 Const General: cooperative, healthy appearing, comfortable and no acute distress Orientation/consciousness: patient oriented x3 Neck Neck: Yes normal visual inspection Resp Effort & Inspection: normal respiratory effort Auscultation: clear to auscultation bilaterally, no crackles, no rales, no rhonchi and no wheezes Cardio Jugular venous distension: no JVD Rate: regular rate Rhythm: regular rhythm Heart sounds: S1 normal heart sound present, S2 normal heart sound present, no murmurs and no rubs Neuro General: patient oriented x3 Extrem General: Yes normal to inspection, No no pedal edema and No calf tenderness Psych Appearance: grossly normal Mental Status: mental status grossly normal Speech and movement: Normal speech and movement present Assessment & Plan Assessment & Plan (1) Chest discomfort: Code(s): R07.89 - Other chest pain Category: Medical Plan: One episode of chest pressure last year when using her exercise bike. She tells me she has not had recurrent symptoms since that time. Cardiac risk factors of hypertension, age. She did have a stress test on 12/17/2023 showing exercise 9 minutes with no anginal symptoms with EKG changes that are suggestive of ischemia. A recent calcium score was completed and her score was 0. This is very reassuring. EKG done last visit shows normal sinus rhythm, first-degree AV block, nonspecific ST abnormality with slight downsloping in the far lateral leads, rate 59, QTC 401 milliseconds. An echocardiogram was done on 03/18/2024 showing EF 60-65%, impaired relaxation, mild MR, no reported regional wall motion abnormalities. A stress echocardiogram was done on 03/26/2024 with exercise 10 minutes, no anginal symptoms, with EKG changes noted however no echo evidence of ischemia, diastolic dysfunction or pulmonary hypertension. She is low risk for having obstructive coronary artery disease. Currently no change to her symptoms and she has good exercise tolerance. Signs and symptoms of angina reviewed with her. Offered cardiology 1 year follow-up and she would prefer p.r.n. follow-up. (2) HTN (hypertension): Code(s): I10 - Essential (primary) hypertension Category: Medical Plan: Well controlled at this time. Continue metoprolol and hydrochlorothiazide. No med changes made. (3) Abnormal EKG: Code(s): R94.31 - Abnormal electrocardiogram [ECG] [EKG] Category: Medical Plan: As above Plan Time spent on chart review, documentation, interview assessment Coding Level of Care Code Est Pt Level 3 (62645) Complex EM visit Add On G2211 Diagnoses Chest discomfort R07.89 HTN (hypertension) I10 Abnormal EKG R94.31 Time Spent (min) 24
--- OUTSIDE RECORDS SUMMARY | 2024-10-15 15:39 | XMS_ITS ---
Author Organization Jesus Manuel Garcia MD Address [address] [place] [phone] Care Team Providers Care Manager Motor Name Role Phone Jesus Manuel Garcia Primary Care Provider REASON FOR VISIT Stess test results Encounters Encounter Location Date Provider Diagnosis Jesus Manuel Garcia MD [address] [place] [address] [address] [place] [phone] 12/17/2023 Jesus Manuel Garcia Plan Of Treatment Next Appt Details Provider Name:Jesus Manuel Mckeon iemary, 12/01/2024 07:45:00 AM, [address] [place] [address], [address], [phone], Provider Name:Jesus Manuel panchal, 12/08/2024 02:30:00 PM, [address] [place] [address], [address], [phone], Progress Notes * Katerine CORMIER ADOB: [birth year] (68 yo F)Acc No.[id number]:12/17/2023 Patient:?Katerine Cormier :1955???Age:68 Y???Sex:Female Address: [place] [address] * true * Date:? Generated for Paco orourke/Dony/eTransmitting on:?10/15/2024 03:39 PM EDT
--- OUTSIDE RECORDS SUMMARY | 2024-10-15 15:40 | XMS_ITS | Patient Health Record ---
Author Organization Jesus Manuel Garcia MD Address [address] [place], [place] [id number] Care Team Providers Care Civil Engineering Project Designer Name Role Phone Jesus Manuel Garcia Primary Care Provider Allergies Allergen (clinical drug ingredient) Drug/Non Drug Allergy documented on EMR Reaction Allergy Type Onset Date Status sodium pent (uncoded) sob Allergy Active Sulfite and/or sulfite derivative (FN) sulfites (uncoded) palpitations Allergy Active novacaine (uncoded) palpitations Allergy Active ibuprofen ibuprofen (uncoded) palpitations Allergy Active penicillin (uncoded) rash Allergy Active Results Component Value Reference Range Notes Complete Blood Count Auto Di ff Reviewed date:11/14/2023 01:04:20 PM Interpretation: Performing Lab:[facility], [address] [place] [phone] Notes/Report: White Blood Count 4.8 4.8-10.8 X10*3/uL Red Blood Count 4.33 4.20-5.50 X10*6/uL Hemoglobin 13.2 12.0-16.0 g/dl Hematocrit 39.7 37.0-47.0 % Mean Corpuscular Volume 91.7 80.0-98.0 fL Mean Corpuscular Hemoglobin 30.5 27.0-33.0 pg Mean Corpuscular HGB Conc 33.2 31.0-35.0 g/dl Red Cell Distribution Width 13.9 11.0-16.0 % Platelet Count 312 160-400 X10*3/uL Mean Platelet Volume 10.4 9.4-12.3 fL Neutrophils Percent Auto 52.1 45-73 % Imm Gran Pct Auto 0.2 0.0-0.4 % Lymphocytes Percent Auto 27.0 20-40 % Monocytes Percent Auto 14.5 2-11 % Eosinophils Percent Auto 5.2 0-4 % Basophils Percent Auto 1.0 0-2 % NRBC Pct Auto 0.0 0.0-0.2 /100WBC Neutrophils Absolute Auto 2.5 2.0-8.3 x10*3/u L Imm Gran Abs Auto 0.01 0.00-0.03 X10*3/uL Lymphocytes Absolute Auto 1.3 1.2-4.9 X10*3/u L Monocytes Absolute Auto 0.7 0.1-1.2 X10*3/uL Eosinophils Absolute Auto 0.3 0.0-0.4 X10*3/u L Basophils Absolute Auto 0.1 0.0-0.2 X10*3/uL NRBC Abs Auto 0.000 0.0-0.012 X10*3/uL Comprehensive [place]. Panel Fa st Reviewed date:11/14/2023 03:32:29 PM Interpretation: Performing Lab:[facility], [address] [place] [phone] Notes/Report: Sodium 136 135-145 mmol/L Potassium 3.7 3.3-5.1 mmol/L Chloride 100 96-108 mmol/L Carbon Dioxide 28 22-29 mmol/L Anion Gap 12 12-20 Blood Urea Nitrogen 13 9-16 mg/dL Creatinine 0.84 0.5-1.4 mg/dL Estimated Glomerular Filt Rate > 60 NOTE: For -Kittitian individuals, multiply the result by 1.210. Chronic Kidney Disease: Estimated GFR < 60 mL/min/1.73m2 Severe Kidney Disease: Estimated GFR < 15 mL/min/1.73m2 Glucose Fasting 100 60-99 mg/dL A fasting glucose from 100-125 mg/dl is considered impaired (pre-diabetes). Calcium 9.2 8.4-10.2 mg/dL Bilirubin Total 0.5 0.0-1.0 mg/dL Aspartate Amino Transferase 27 5-31 U/L Alanine Aminotransferase 24 0-31 U/L Total Protein 7.2 6.5-8.0 g/dL Albumin Level 4.0 3.5-5.0 g/dL Alkaline Phosphatase 46 39-117 U/L Lipid Panel Reviewed date:11/14/2023 03:26:03 PM Interpretation: Performing Lab:[facility], [address] [place] [phone] Notes/Report: Triglycerides 79 <150 mg/dL Desirable Triglyceride: less than 150 mg/dL Borderline High Triglyceride 150-199 mg/dL High Triglyceride: 200-499 mg/dL Very High Triglyceride: greater than or equal to 5OO mg/dL Cholesterol 263 <200 mg/dL Desirable Cholesterol: less than 200 mg/dL Borderline High Cholesterol: 200-239 mg/dL High Cholesterol: greater than 239 mg/dL LDL Cholesterol Calculated 157 <100 mg/dL Desirable LDL: less than 100 mg/dL Near Optimal/Above Optimal LDL: 110-129 mg/dL Borderline High LDL: 130-159 mg/dL High LDL: 160-189 mg/dL Very High LDL: greater than or equal to 190 mg/dL HDL Cholesterol 91 >40 mg/dL Desirable HDL: greater than 40 mg/dL Note: This HDL assay may give artificially low results in patients with liver disease. UA ClnCatch+Micro w/rflx Cul t Reviewed date:11/22/2023 11:51:56 AM Interpretation:MEGHA 11/20 Performing Lab:[facility], [address] [place] [phone] Notes/Report: Urine, Clean Catch Color Urine Yellow Appearance Urine Clear PH 7.0 5.0-9.0 Glucose Urine UA Negative Negative mg/dL Urine Blood Trace Negative Specific Delta - Urine 1.020 1.005-1.025 Urine Protein Negative Neg-Trace mg/dL Urine Ketones Negative Negative mg/dL Nitrite Urine Negative Negative Leukocyte Esterase Urine Negative Negative RBC Urine 11-20 0-2 /HPF WBC Urine 0-5 0-5 /HPF Squamous Epithelial Cell Urine 0-2 0-2 /HPF Bacteria Urine None Seen None Seen Hyaline Casts Urine 0-2 0-2 /LPF Hold Gold Reviewed date:11/14/2023 12:48:18 PM Interpretation: Performing Lab:[facility], [address] [facility], [place] [address] Notes/Report: Hold Gold See Note Specimen held untested for 24 hours; Call to request Chemistry testing. MM tomosynthesis screening B I Reviewed date:12/20/2023 12:39:24 PM Interpretation: Performing Lab: Notes/Report: [address] [place] [address] Mammography Report Signed Patient: Katerine Cormier MR#: [id number] : 1955 Acct:[id number] Age/Sex: 68 / F ADM Date: 11/19/23 Loc: HO.MAMMO Attending Dr: Jesus Manuel Garcia MD Ordering Physician: Jesus Manuel Garcia MD Results: 1Ne gative Date of Service: 11/19/23 Follow Up: 1 Year From [facility] Mammogram Procedure(s): MM tomosynthesis screening BI Accession Number(s): [id number] cc: Jesus Manuel Garcia MD EXAMINATION: MM SCREENING DIGITAL BREAST TOMOSYNTHESIS, BILATERAL CLINICAL INFORMATION: Screening. Asymptomatic. COMPARISON: Mammography: This study is compared with prior exams dating back to 2019. TECHNIQUE: Digital breast tomosynthesis is performed in both the craniocaudal and mediolateral oblique views along with computer-aided detection (CAD). Synthesized 2D images are generated from the tomosynthesis. FINDINGS: The breasts are heterogeneously dense, which may obscure small masses (ACR BI-RADS breast composition Category c). There are no significant masses, abnormal calcifications, or other abnormalities. MM/MM tomosynthesis screening BI IMPRESSION: No mammographic evidence of malignancy. ASSESSMENT: BI-RADS BI-RADS 1 - Negative RECOMMENDATION: Routine annual mammography screening. 1 year F/U This examination should not preclude the clinical evaluation of a suspicious palpable abnormality. This patient's information was entered into a reminder system with a target due date for their next mammogram. Dictated By: Jesica Ballard MD Signed By: <Electronically signed by Jesica Ballard MD in OV> 12/20/23833 DD/ 115 TD/TT: End Finder Twisting Department: [facility] [address] [place], [place] [address] Mammography Report Signed Patient: Sancho Cormier MR#: [id number] : 1955 Acct:[id number] Age/Sex: 68 / F ADM Date: 11/19/23 Loc: DEBBIE Attending Dr: Jesus Manuel Garcia MD Ordering Physician: Jesus Manuel Garcia MD Results: 1Ne gative Date of Service: 11/19/23 Follow Up: 1 Year From Orig inal Mammogram Procedure(s): MM tomosynthesis screening BI Accession Number(s): [id number] cc: Jesus Manuel Garcia MD EXAMINATION: MM SCREENING DIGITAL BREAST TOMOSYNTHESIS, BILATERAL CLINICAL INFORMATION: Screening. Asymptomatic. COMPARISON: Mammography: This st udy is compared with prior exams dating back to 2019. TECHNIQUE: Digital breast tomosynthesis is performed in both the craniocaudal and mediolateral oblique views along with computer-aided detection (CAD). Synthesized 2D image s are generated from the tomosynthesis. FINDINGS: The breasts are heterogeneously dense, which may obscure small masses (ACR BI-RADS breast composition Category c). There are no significant masses, abnormal calcifications, or other abnormalities. MM/MM tomosynthesis screening BI IMPRESSION: No mammographic evidence of malignancy. ASSESSMENT: BI-RADS BI-RADS 1 - Negative RECOMMENDATION: Routine annual mammography screening. 1 year F/U This examination mojgan uld not preclude the clinical evaluation of a suspicious palpable abnormality. This patient's information was entered into a reminder system with a target due date for their next mammogram. Dictated By: Jesica Ballard MD Signed By: <Electronically signed by Jesica Ballard MD in OV> 12/20/23 0834 DD/ 1152 TD/TT: End Finder Twisting Department: Reason For Referral Reason tightness in chest Diagnosis 1 Tightness in chest ( R07.89) Referral Organization Jesus Manuel Garcia MD Referring Provider First Name Jesus Manuel Referring Provider Last Name Radha Referring Provider Speciality Internal M edicine Referred Provider Reddy Paige Referred Provider Specialty Cardiovascul ar Disease General Notes Theresa Underwood 02:30:48 PM EDT > send reports, Staci Underwoodette 01/10/2024 10:03:29 AM EDT > appt is with Karuna Baum- patient is aware of appt Referral Priority Routine Referral Appointment Date 01/31/2024 Medications Medication SIG (Take, Route, Frequency, Duration) Notes Start Date End Date Status hydroCHLOROthiazide 25 MG TAKE 1 TABLET ONCE DAILY for 90 Active Fluorouracil 5 % 1 application to affected area Externally Twice a day for 30 days 05/06/2017 Not-Taking LORazepam 1 MG TAKE 1/2 TABLET BY MOUTH ONCE A DAY for 60 10/09/2023 Active Metoprolol Tartrate 50 MG TAKE 1/2 TABLE T THREE TIMESDAILY for 90 Active Immunizations Vaccine Route Administration Date Status Comme nts DECLINED, FLU Unknown 08/26/2012 Administered DECLINED, FLU Unknown 09/03/2013 Administered Fluarix Quadrivalent IM Intramuscular 05/13/2018 Administe red Fluarix Quadrivalent IM Intramuscular 05/19/2019 Administe red Flu Vaccine Unknown 03/29/2015 Refused Flu Vaccine Unknown 04/03/2016 Refused Fluarix Quadrivalent Unknown 04/30/2017 Refused Fluarix Quadrivalent Unknown 03/22/2020 Refused Prevnar 13 Unknown 04/07/2020 Refused PPSV23 (Pnemovax) Unknown 04/07/2020 Refused TDaP Unknown 04/07/2020 Refused Shingrix Unknown 04/07/2020 Refused Fluarix Quadrivalent Unknown 10/23/2021 Refused Covid Vaccine Unknown 10/23/2021 Refused Influenza High Dose Unknown 06/16/2024 Refused Social History Tobacco Use: Social History Observation Description Date Details (start date - stop date) Never Smoker NA - NA Tobacco Use/Smoking Question Answer Notes Patient is a nonsmoker Additional Findings: Tobacco Non-User Cu rrent non-smoker, currently using no form of tobacco Alcohol Screen Question Answer Notes Did you have a drink contain ing alcohol in the past year? Yes How often did you have a dri nk containing alcohol in the past year? Monthly or less (1 point) How many drinks did you have on a typical day when you were drinking in the past year? 1 or 2 drinks (0 point) How often did you have 6 or more drinks on one occasion in the past year? 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) Active confirmed Problem 78624561 Meniere''s disease of left ear (H81.02) Active confirmed Problem 77440191 Purulent bronchitis (J41.1) Active confirmed Vital Signs Blood pressure diastolic 56 mm Hg 06/16/2024 immanuel ght is up 3 pounds since 12-27-23 Height 66 in 06/16/2024 weight is up 3 pounds since 12-27-23 Blood pressure systolic 132 mm Hg 06/16/2024 weig ht is up 3 pounds since 12-27-23 Weight 140 lbs 06/16/2024 weight is up 3 pounds since 12-27-23 BMI 22.59 kg/m2 06/16/2024 weight is up 3 pounds since 12-27-23 Encounters Encounter Location Date Provider Diagnosis Jesus Manuel Garcia MD [address] [place] [id number] 11/14/2023 Jesus Manuel Garcia Blood tests for routine general physical examination Z00.00 ; Hypertension I10 and Elevated LDL cholesterol level E78.00 Jesus Manuel Garcia MD [address] [place] [id number] 10/18/2023 Jesus Manuel Garcia Purulent bronchitis J41.1 Jesus Manuel Garcia MD [address] [place] [address] Drive [address] [place] [id number] 11/21/2023 Jesus Manuel Garcia Annual physical exam Z00.00 ; Encounter for general adult medical examination with abnormal findings Z00.01 ; Elevated LDL cholesterol level E78.00 ; Tightness in chest R07.89 ; Bronchospasm J98.01 ; Hypertension I10 and Depression screening Z13.31 Jesus Manuel Garcia MD [address] [place] [id number] 12/27/2023 Jesus Manuel Garcia Tightness in chest R07.89 and Hypertension I10 Jesus Manuel Garcia MD [address] [place] [id number] 06/16/2024 Jesus Manuel Garcia Hypertension I10 and Precordial chest pain R07.2 Jesus Manuel Garcia MD [address] [place] [id number] 12/17/2023 Jesus Manuel Garcia Assessments Encounter Date Diagnosis (ICD Code) Assessment Notes Treatment Notes Treatment Clinical Notes Section Notes 11/14/2023 Blood tests for routine general physical examination (ICD-10 - Z00.00) 11/14/2023 Hypertension (ICD-10 - I10) 10/18/2023 Purulent bronchitis (ICD-10 - J41.1) patient verbalized understanding of medications and directions for use 11/21/2023 Annual physical exam (ICD-10 - Z00.00) labs reviewed and discussed with patient 11/21/2023 Encounter for general adult medical examination with abnormal findings (ICD-10 - Z00.01) 12/27/2023 Tightness in chest (ICD-10 - R07.89) discussed findings of recent Ct with [patient, referral made to dr paige for further evaluation 12/27/2023 Hypertension (ICD-10 - I10) doing well, will continue current regiment 06/16/2024 Hypertension (ICD-10 - I10) stable, at goal, will continue current regiment 06/16/2024 Precordial chest pain (ICD-10 - R07.2) has been without pain. workup negative, will continue to monitor 11/14/2023 Elevated LDL cholesterol level (ICD-10 - E78.00) 11/21/2023 Elevated LDL cholesterol level (ICD-10 - E78.00) stable, will continue to monitor 11/21/2023 Tightness in chest (ICD-10 - R07.89) wants a cardiac calcium score. is aware that it may not be covered, pending diagnostic testing/ order for stress test faxed to [facility] CS dept Calcium Score CT Scan appt is 12-09-23@1:45. Arrive 15 minutes early order faxed to .Dennys holcomb aware of date and time. 11/21/2023 Bronchospasm (ICD-10 - J98.01) doesn't want inhaler or chest xray as she is getting better 11/21/2023 Hypertension (ICD-10 - I10) stable, will cntinue current regiment 11/21/2023 Depression screening (ICD-10 - Z13.31) negative screen Plan Of Treatment Pending Test Test Name Order Date Electrocardiogram (EKG) 06/02/2019 Bone Density 01/12/2011 Cardiac Event Monitor 10/30/2016 CA stress test 11/21/2023 XR DEXA axial skeleton 04/24/2021 Next Appt Details Provider Name:Jesus Manuel Mckeon ier, 12/01/2024 07:45:00 AM, [address] [place] [address], [address], [phone], Provider Name:Jesus Manuel Mckeon ier, 12/08/2024 02:30:00 PM, [address] [place] [address], Suite [facility], [place], [place], [phone], Insurance Providers Payer Name Payer Address Payer Phone Subscriber Number Group Number Insured Name Patient Relationship to Insured Coverage Start Date Coverage End Date [employer] [address] [place], [place] [id number] [phone] [id number] Katerine Cormier Self - patient is the insured Medical (General) History Medical History History ICD Code colonoscopy 08/2006 - repeat 10 years; done 11/13/[address] Magdaleno - repeat 10 yrs 08/2013 - OPERATIONS/DISPATCH EDILMA Contreras 11/04/2013 pap every other year, due next year has had blood in urine for many years heredia d been evaluated by urology 07/26/2020 FOBT Negative cologard 06/22 Surgical History Surgery Date(Month/Year) surgery for hemifacial spasm
--- OUTSIDE RECORDS SUMMARY | 2024-10-15 15:40 | XMS_ITS ---
Author Organization Jesus Manuel Garcia MD Address [address] [place] [phone] Care Team Providers Care Training Systems Officer Name Role Phone Jesus Manuel Garcia Primary Care Provider [phone] Allergies Allergen (clinical drug ingredient) Drug/Non Drug Allergy documented on EMR Reaction Allergy Type Onset Date Status sodium pent (uncoded) sob Allergy Active Sulfite and/or sulfite derivative (FN) sulfites (uncoded) palpitations Allergy Active novacaine (uncoded) palpitations Allergy Active ibuprofen ibuprofen (uncoded) palpitations Allergy Active penicillin (uncoded) rash Allergy Active REASON FOR VISIT 6 month Medications Medication SIG (Take, Route, Frequency, Duration) Notes Start Date End Date Status Fluorouracil 5 % 1 application to affected area Externally Twice a day for 30 days 05/06/2017 Not-Taking Metoprolol Tartrate 50 MG TAKE 1/2 TABLE T THREE TIMESDAILY Orally three time a day Active LORazepam 1 MG TAKE 1/2 TABLET BY MOUTH ONCE A DAY for 60 10/09/2023 Active hydroCHLOROthiazide 25 MG TAKE 1 TABLET ONCE DAILY Active Immunizations Vaccine Route Administration Date Status Comme nts Influenza High Dose Unknown 06/16/2024 Refused Vital Signs Blood pressure systolic 132 mm Hg 06/16/20 24 Blood pressure diastolic 56 mm Hg 024 Height 66 in 06/16/2024 Weight 140 lbs 06/16/2024 BMI 22.59 kg/m2 06/16/2024 weight is up 3 pounds since 12-27-23 Encounters Encounter Location Date Provider Diagnosis Jesus Manuel Garcia MD [address] [place] [address] [place] [phone] 06/16/2024 Jesus Manuel Garcia Hypertension I10 and Precordial chest pain R07.2 Assessments Encounter Date Diagnosis (ICD Code) Assessment Notes Treatment Notes Treatment Clinical Notes Section Notes 06/16/2024 Hypertension (ICD-10 - I10) stable, at goal, will continue current regiment 06/16/2024 Precordial chest pain (ICD-10 - R07.2) has been without pain. workup negative, will continue to monitor Plan Of Treatment Medication Medication Name Sig Start Date Stop Date Notes Metoprolol Tartrate 50 MG TAKE 1/2 TABLE T THREE TIMESDAILY Orally three time a day hydroCHLOROthiazide 25 MG TAKE 1 TABLET ONCE DAILY Treatment Notes Assessment Notes Hypertension stable, at goal, bobbi l continue current regiment Precordial chest pain has been without p ain. workup negative, will continue to monitor Next Appt Details Provider Name:Jesus Manuel panchal, 12/01/2024 07:45:00 AM, [address] [place] [address], [address], [phone], Provider Name:Jesus Manuel panchal, 12/08/2024 02:30:00 PM, [address] [place] [address], [address], [phone], Progress Notes * Katerine CORMIER ADOB: [birth year] (69 yo F)Acc No.[id number]:06/16/2024 Progress Notes Patient:?Casa Katerine A Provider:?Jesus Manuel Garcia MD :1955???Age:69 Y???Sex:Female D ate:06/16/2024 Address:[address] [id number] Subjective: * Chief Complaints: * ???6 month * HPI: ???Symptom(s):? patient is a 69 yo female here for 6 month follow up visit, has not had any further chest pain. is doing cardio again and not having any chest pain. * ROS:?General/Constitutional:?Denies?Chills.?Denies?Fatigue.?Denies?Fever.?Denies?Headache.?ENT:?Patient denies?decreased sense of smell , any loss of taste , sore throat.?Denies?Sore throat.?Respiratory:?Denies?Cough.?Denies?Shortness of breath at rest.?Denies?Shortness of breath with exertion.?Cardiovascular:?Denies?Chest pain at rest.?Denies?Chest pain with exertion.?Denies?Dizziness.?Denies?Palpitations.?Denies?Shortness of breath.?Gastrointestinal:?Denies?Diarrhea.?Denies?Nausea.?Musculoskeletal:?Patient denies?muscle aches.?Peripheral Vascular:?Patient denies?red and blue toes.? * Medical History:? * Surgical History:? * Hospitalization/Major Diagno stic Procedure:? * Medications:?TakingLORazepam 1 MG Tablet TAKE 1/2 TABLET BY MOUTH ONCE A DAY hydroCHLOROthiazide 25 MG Tablet TAKE 1 TABLET ONCE DAILY Metoprolol Tartrate 50 MG Tablet TAKE 1/2 TABLET THREE TIMESDAILY Orally three time a dayTaking LORazepam 1 MG Tablet TAKE 1/2 TABLET BY MOUTH ONCE A DAY Taking hydroCHLOROthiazide 25 MG Tablet TAKE 1 TABLET ONCE DAILY Taking Metoprolol Tartrate 50 MG Tablet TAKE 1/2 TABLET THREE TIMESDAILY Orally three time a dayNot-Taking/PRNFluorouracil 5 % Cream 1 application to affected area Externally Twice a dayMedication List reviewed and reconciled with the patientNot-Taking/PRN Fluorouracil 5 % Cream 1 application to affected area Externally Twice a dayMedication List reviewed and reconciled with the patient * Allergies:?penicillin: kelly buprofen: palpitationsnovacaine: palpitationssulfites: palpitationssodium pent: sobyes[Allergies Verified] Objective: * Vitals:?Ht: 66, Wt:140, BMI: 22.59, BP:132/56 weight is up 3 pounds since 12-27-23. * Examination: ???General Examination: ?GENERAL APPEARANCE:?alert, well hydrated, in no distress.?HEAD:?normocephalic.?SKIN:?good turgor.?HEART:?no murmurs, rubs, gallops.?LUNGS:?no wheezes, rales, rhonchi , good air movement , clear to auscultation bilaterally.? Assessment: * Assessment: 1.?Hypertension - I10?2.?Pre cordial chest pain - R07.2? Plan: * Treatment: 2.?Precordial chest pain? Notes: has been without pain. workup negative, will continue to monitor?? * Immunizations:? Influenza High Dose (Not administered - Refused: Patient decision) * Procedure Codes:? * Preventive Medicine:? ??Immunizations:?Influenza?Have you had a flu shot since the most recent March 01??No patient refused at visit today.? * * Sign off status: Completed true * Provider:?Jesus Manuel Garcia MD Date:?1 08/17/2023 Generated for Paco orourke/Dony/Krystinaitting on:?10/15/2024 03:39 PM EDT History and Physical Notes * HPI (History of Present Illness) Category Sub-Category Detail Notes Category Not es Symptom(s) patient is a 69 yo female here for 6 month follow up visit, has not had any further chest pain. is doing cardio again and not having any chest pain Examination Category Sub-Category Detail Notes Category Not es General Examination GENERAL APPEARANCE: alert, w ell hydrated, in no distress HEAD: normocephalic HEART: no murmurs, rubs, ga llops LUNGS: no wheezes, rales, r honchi , good air movement , clear to auscultation bilaterally SKIN: good turgor
--- OUTSIDE RECORDS SUMMARY | 2024-10-15 15:40 | XMS_ITS ---
Author Organization Jesus Manuel Garcia MD Address [address] [place] [phone] Care Team Providers Care Day Treatment Clinician/Art Therapist Name Role Phone Jesus Manuel Garcia Primary Care Provider [phone] Allergies Allergen (clinical drug ingredient) Drug/Non Drug Allergy documented on EMR Reaction Allergy Type Onset Date Status sodium pent (uncoded) sob Allergy Active Sulfite and/or sulfite derivative (FN) sulfites (uncoded) palpitations Allergy Active novacaine (uncoded) palpitations Allergy Active ibuprofen ibuprofen (uncoded) palpitations Allergy Active penicillin (uncoded) rash Allergy Active Reason For Referral Reason tightness in chest Diagnosis 1 Tightness in chest ( R07.89) Referral Organization Jesus Manuel Garcia MD Referring Provider First Name Jesus Manuel Referring Provider Last Name Radha Referring Provider Speciality Internal M edicine Referred Provider Reddy Paige Referred Provider Specialty Cardiovascul ar Disease General Notes Theresa Underwood 02:30:48 PM EDT > send reports, Theresa Underwood 01/10/2024 10:03:29 AM EDT > appt is with Karuna Baum- patient is aware of appt Referral Priority Routine Referral Appointment Date 01/31/2024 REASON FOR VISIT must see / follow up from [facility] coronary CT scan/ Cardio referral Medications Medication SIG (Take, Route, Frequency, Duration) Notes Start Date End Date Status LORazepam 1 MG TAKE 1/2 TABLET BY MOUTH ONCE A DAY for 60 10/09/2023 Active hydroCHLOROthiazide 25 MG TAKE 1 TABLET ONCE DAILY Active Metoprolol Tartrate 50 MG TAKE 1/2 TABLE T THREE TIMESDAILY Orally three time a day Active Fluorouracil 5 % 1 application to affected area Externally Twice a day for 30 days 05/06/2017 Not-Taking Vital Signs Blood pressure systolic 142 mm Hg 12/27/19 24 Blood pressure diastolic 60 mm Hg 024 Height 66 in 12/27/2023 Weight 137 lbs 12/27/2023 BMI 22.11 kg/m2 12/27/2023 Encounters Encounter Location Date Provider Diagnosis Jesus Manuel Garcia MD [address] [place] [address] Drive [address] [place] [phone] 12/27/2023 Jesus Manuel Garcia Tightness in chest R07.89 and Hypertension I10 Assessments Encounter Date Diagnosis (ICD Code) Assessment Notes Treatment Notes Treatment Clinical Notes Section Notes 12/27/2023 Tightness in chest (ICD-10 - R07.89) discussed findings of recent Ct with [patient, referral made to dr paige for further evaluation 12/27/2023 Hypertension (ICD-10 - I10) doing well, will continue current regiment Plan Of Treatment Medication Medication Name Sig Start Date Stop Date Notes hydroCHLOROthiazide 25 MG TAKE 1 TABLET ONCE DAILY Metoprolol Tartrate 50 MG TAKE 1/2 TABLE T THREE TIMESDAILY Orally three time a day Treatment Notes Assessment Notes Tightness in chest discussed findings o f recent Ct with [patient, referral made to dr paige for further evaluation Hypertension doing well, will con tinue current regiment Referrals Referral Date Details 12/27/2023 12/27/2023, tightnes s in chest, Reddy Paige Next Appt Details Follow Up: 6 Months, Reason: Provider Name:Jesus Manuel panchal, 12/01/2024 07:45:00 AM, [address], [address] [place], [phone], Provider Name:Jesus Manuel Mckeon ier, 12/08/2024 02:30:00 PM, [address] [facility], [address], [place], [phone], Progress Notes * BONYKaterine ABBASI ADOB: [birth year] (68 yo F)Acc No.[id number]:12/27/2023 Patient:?Katerine Cormier A Provider:?Jesus Manuel Garcia MD :1955???Age:68 Y???Sex:Female D ate:12/27/2023 Address: [address] [id number] Subjective: * Chief Complaints: * ???must see / follow up from [facility] score coronary CT scan/ Cardio referral * HPI: ???Symptom(s):? patient is a 68 yo female here for follow up from recent CT scan. * ROS:?General/Constitutional:?Denies?Chills.?Denies?Fatigue.?Denies?Fever.?Denies?Headache.?ENT:?Patient denies?decreased sense of smell , any loss of taste , sore throat.?Denies?Sore throat.?Respiratory:?Denies?Cough.?Denies?Shortness of breath at rest.?Denies?Shortness of breath with exertion.?Gastrointestinal:?Denies?Diarrhea.?Denies?Nausea.?Musculoskeletal:?Patient denies?muscle aches.?Patient complaining of?of a pinching on both sides of upper abdomen when she bends to tie shoes and gets back up and tries it again.?Peripheral Vascular:?Patient denies?red and blue toes.? * Medical [...] pent: sobyes[Allergies Verified] Objective: * Vitals:?Ht: 66, Wt:137, BMI: 22.11, BP:142/60, Repeat BP:130/80. * Examination: ???General Examination: ?GENERAL APPEARANCE:? alert, well hydrated, in no distress , female.?HEAD:? normocephalic.?SKIN:? good turgor.?HEART:? no murmurs, rubs, gallops, regular rate and rhythm.?LUNGS:? no wheezes, rales, rhonchi, clear to auscultation bilaterally, good air movement.?ABDOMEN:? soft non tender abdomen no masses.? Assessment: * Assessment: 1.?Tightness in chest - R07. 89 (Primary)?2.?Hypertension - I10? Plan: * Treatment: 2.?Hypertension? Continue hydroCHLOROthiazide Tablet, 25 MG, TAKE 1 TABLET ONCE DAILY;?Continue Metoprolol Tartrate Tablet, 50 MG, TAKE 1/2 TABLET THREE TIMESDAILY, Orally, three time a day.?? Notes: doing well, will continue current regiment.?? * Procedure Codes:? * Follow Up:?6 Months * * Sign off status: Completed true * Provider:?Jesus Manuel Garcia MD Date:?0 12/27/2023 Generated for Paco orourke/Dony/Krystinaitting on:?10/15/2024 03:40 PM EDT History and Physical Notes * HPI (History of Present Illness) Category Sub-Category Detail Notes Category Not es Symptom(s) patient is a 68 yo female here for follow up from recent CT scan Examination Category Sub-Category Detail Notes Category Not es General Examination GENERAL APPEARANCE: alert, w ell hydrated, in no distress , female HEAD: normocephalic HEART: no murmurs, rubs, ga llops, regular rate and rhythm LUNGS: no wheezes, rales, r honchi, clear to auscultation bilaterally, good air movement ABDOMEN: soft non tender abdo men no masses SKIN: good turgor Consultation Request Notes Referral Date Referring Provider Referred Provider Not es 12/27/2023 Jesus Manuel Garcia Nirav tightness i n chest
--- OUTSIDE RECORDS SUMMARY | 2024-10-15 15:41 | XMS_ITS | Patient Health Record ---
Author Organization [facility] Address [address] [id number] Care Team Providers Care Reading Efficiency Course Director Name Role Phone Jesus Manuel Garcia MD Primary Care Provider JOLANTA Marroquin Unavailable [phone] Allergies Allergen (clinical drug ingredient) Drug/Non Drug Allergy documented on EMR Reaction Allergy Type Onset Date Status ibuprofen Ibuprofen Heart Palpatations Drug Allergy Active Procaine HCl Novacaine Drug Allergy Acti ve phenylbutyrate Sodium Phenylbutyrate Labored Breathing Drug Allergy Active Penicillin hives Drug Allergy Active Reason For Referral No Information Medications Medication SIG (Take, Route, Frequency, Duration) Notes Start Date End Date Status hydroCHLOROthiazide 25 MG 1 tablet in th e morning Orally Once a day for 30 day(s) Active Estradiol Vaginal Cream 0.1% 1 Gram Vagi zak Twice a week for 365 days 09/16/2018 Not-Taking Yuvafem 10 MCG 1 tablet Vaginal Two times a Week for 90 days 10/18/2020 Not-Taking Metoprolol Tartrate 25 MG 1 tablet with food Orally Three x a day Active LORazepam 1 MG (Schedule IV Drug) TAKE 1/2 TABLET BY MOUTH ONCE A DAY. Oral for 60 Active Social History Tobacco Use: Social History Observation Description Date Details (start date - stop date) Never Smoker NA - NA Tobacco Use/Smoking Question Answer Notes Are you a nonsmoker Alcohol Screen (Audit-C) Question Answer Notes Did you have a drink contain ing alcohol in the past year? Yes How often did you have a dri nk containing alcohol in the past year? 4 or more times a week (4 points) How many drinks did you have on a typical day when you were drinking in the past year? 1 or 2 drinks (0 point) Points 4 Interpretation Positive Sexual History Question Answer Notes Had sex in the past 12 months (vaginal, oral, or anal)? Yes with Men only Problems Problem Type SNOMED Code ICD Code Onset Dates Problem Status W/U Status Risk Notes Problem Postmenopausal atrophic vaginitis (48357599) Postmenopausal atrophic vaginitis (N95.2) Active confirmed Problem COVID-19 (712016260) COVID-19 (U07.1) Active confirmed Plan Of Treatment Pending Test Test Name Order Date MM Digital Screening Mammogram 3D 2018 MM Digital Screening Mammogram 3D 2020 MM Digital Screening Mammogram 3D 2022 Next Appt Details Provider Name:JOLANTA Raygoza, 02/09/2025 10:00:00 AM, [address], [address], [place], [address], Insurance Providers Payer Name Payer Address Payer Phone Subscriber Number Group Number Insured Name Patient Relationship to Insured Coverage Start Date Coverage End Date [employer] MEDICARE PPO [address] [place] [address] [id number] ADA LOVETT Self - patient is the insured Medical (General) History Medical History History ICD Code Essential (primary) hypertension I10 Meniere's disease, unspecified ear H81.0 9 Postmenopausal atrophic vaginitis N95.2 COVID-19 U07.1 Surgical History Surgery Date(Month/Year) 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
== END 2024-10-15 13:17 | disposition home or self-care (01) ==
PROVIDERS: PCP Internal Medicine; Visit Provider Nurse Practitioner Family
DX: R07.89 Other chest pain (principal); I10 Essential (primary) hypertension; R94.31 Abnormal electrocardiogram [ECG] [EKG]
CPT/HCPCS: 99213; G2211

== ENCOUNTER → 2024-10-15 12:52 | Outpatient (BNVA) | payer MEDICARE, SELFPAY | PROVIDERS: PCP Internal Medicine; Visit Provider Nurse Practitioner Family | DX: R07.89 Other chest pain (principal); I10 Essential (primary) hypertension; R94.31 Abnormal electrocardiogram [ECG] [EKG] | CPT/HCPCS: 99212 ==

== ENCOUNTER 2024-11-24 11:44 | Outpatient (REF) | payer MEDICARE, SELFPAY | END 2024-11-24 11:45 | disposition home or self-care (01) | LOC: HO.MAMMO 11:44 | PROVIDERS: PCP Internal Medicine; Visit Provider Internal Medicine | DX: Z12.31 Encounter for screening mammogram for malignant neoplasm of breast (principal) | CPT/HCPCS: 77063; 77067 ==

== ENCOUNTER → 2024-11-24 11:45 | Outpatient (BNV) | payer MEDICARE, SELFPAY | PROVIDERS: PCP Internal Medicine; Visit Provider Internal Medicine | DX: Z12.31 Encounter for screening mammogram for malignant neoplasm of breast (principal) | CPT/HCPCS: 77063; 77067 ==

== ENCOUNTER 2024-12-01 09:54 | Outpatient (REF) | payer MEDICARE, SELFPAY ==
[2024-12-01 09:55] LABS: MANUAL DIFF FLAG NO
[2024-12-01 10:11] LABS: Basophils Absolute Auto 0.1 X10*3/uL (0.0-0.2); Basophils Percent Auto 1.4 % (0-2); Eosinophils Absolute Auto 0.2 X10*3/uL (0.0-0.4); Eosinophils Percent Auto 3.7 % (0-4); Hematocrit 40.8 % (37.0-47.0); Hemoglobin 13.8 g/dl (12.0-16.0); Imm Gran Abs Auto 0.01 X10*3/uL (0.00-0.03); Imm Gran Pct Auto 0.2 % (0.0-0.4); Lymphocytes Absolute Auto 1.7 X10*3/uL (1.2-4.9); Lymphocytes Percent Auto 30.8 % (20-40); Mean Corpuscular HGB Conc 33.8 g/dl (31.0-35.0); Mean Corpuscular Hemoglobin 30.3 pg (27.0-33.0); Mean Corpuscular Volume 89.7 fL (80.0-98.0); Mean Platelet Volume 10.2 fL (9.4-12.3); Monocytes Absolute Auto 0.7 X10*3/uL (0.1-1.2); Monocytes Percent Auto 12.5 % (2-11); Neutrophils Absolute Auto 2.9 x10*3/uL (2.0-8.3); Neutrophils Percent Auto 51.4 % (45-73); Platelet Count 324 X10*3/uL (160-400); Red Blood Count 4.55 X10*6/uL (4.20-5.50); Red Cell Distribution Width 13.2 % (11.0-16.0); White Blood Count 5.6 X10*3/uL (4.8-10.8)
[2024-12-01 10:29] LABS: Appearance Urine Hazy; Color Urine Yellow; Glucose Urine UA Negative (Negative); Leukocyte Esterase Urine Small (1+) (Negative); Nitrite Urine Negative (Negative); PH 7.5 (5.0-9.0); Specific Gravity - Urine <= 1.005 (1.005-1.025); UMIC TRIGGER UACC YES; Urine Blood Small (1+) (Negative); Urine Ketones Negative (Negative); Urine Protein Negative (Neg-Trace)
[2024-12-01 10:31] LABS: Bacteria Urine None Seen (None Seen); Hyaline Casts Urine 0-2 /LPF (0-2); RBC Urine >20 /HPF (0-2); Squamous Epithelial Cell Urine 0-2 /HPF (0-2); UACC Culture Trigger YES; WBC Urine 0-5 /HPF (0-5)
[2024-12-01 10:47] LABS: Alanine Aminotransferase 23 U/L (0-31); Albumin Level 4.3 g/dL (3.5-5.0); Alkaline Phosphatase 51 U/L (39-117); Anion Gap 11 (12-20); Aspartate Amino Transferase 27 U/L (5-31); Bilirubin Total 0.6 mg/dL (0.0-1.0); Blood Urea Nitrogen 12 mg/dL (9-16); Calcium 9.5 mg/dL (8.4-10.2); Carbon Dioxide 29 mmol/L (22-29); Chloride 100 mmol/L (96-108); Cholesterol 267 mg/dL (<200); Estimated Glomerular Filt Rate > 60; Glucose Fasting 97 mg/dL (60-99); HDL Cholesterol 88 mg/dL (>40); LDL Cholesterol Calculated 162 mg/dL (<100); Potassium 3.9 mmol/L (3.3-5.1); Sodium 136 mmol/L (135-145); Total Protein 7.4 g/dL (6.5-8.0); Triglycerides 87 mg/dL (<150)
--- OUTSIDE RECORDS SUMMARY | 2024-12-01 11:10 | XMS_ITS ---
Author Organization Jesus Manuel Garcia MD Address [address] [place] [phone] Care Team Providers Care Machine Hoop Maker Name Role Phone Jesus Manuel Garcia Primary Care Provider Results Component Value Reference Range Notes Complete Blood Count Auto Di ff (Not yet reviewed by provider) Interpretation: Performing Lab:[facility], [address] [place] [phone] Notes/Report: White Blood Count 5.6 4.8-10.8 X10*3/uL Red Blood Count 4.55 4.20-5.50 X10*6/uL Hemoglobin 13.8 12.0-16.0 g/dl Hematocrit 40.8 37.0-47.0 % Mean Corpuscular Volume 89.7 80.0-98.0 fL Mean Corpuscular Hemoglobin 30.3 27.0-33.0 pg Mean Corpuscular HGB Conc 33.8 31.0-35.0 g/dl Red Cell Distribution Width 13.2 11.0-16.0 % Platelet Count 324 160-400 X10*3/uL Mean Platelet Volume 10.2 9.4-12.3 fL Neutrophils Percent Auto 51.4 45-73 % Imm Gran Pct Auto 0.2 0.0-0.4 % Lymphocytes Percent Auto 30.8 20-40 % Monocytes Percent Auto 12.5 2-11 % Eosinophils Percent Auto 3.7 0-4 % Basophils Percent Auto 1.4 0-2 % NRBC Pct Auto 0.0 0.0-0.2 /100WBC Neutrophils Absolute Auto 2.9 2.0-8.3 x10*3/u L Imm Gran Abs Auto 0.01 0.00-0.03 X10*3/uL Lymphocytes Absolute Auto 1.7 1.2-4.9 X10*3/ uL Monocytes Absolute Auto 0.7 0.1-1.2 X10*3/uL Eosinophils Absolute Auto 0.2 0.0-0.4 X10*3/u L Basophils Absolute Auto 0.1 0.0-0.2 X10*3/uL NRBC Abs Auto 0.000 0.0-0.012 X10*3/uL Comprehensive [place]. Panel Fa st (Not yet reviewed by provider) Interpretation: Performing Lab:[facility], [address] [place] [phone] Notes/Report: Sodium 136 135-145 mmol/L Potassium 3.9 3.3-5.1 mmol/L Chloride 100 96-108 mmol/L Carbon Dioxide 29 22-29 mmol/L Anion Gap 11 12-20 Blood Urea Nitrogen 12 9-16 mg/dL Creatinine 0.83 0.5-1.4 mg/dL Estimated Glomerular Filt Rate > 60 Chronic Kidney Disease: Estimated GFR < 60 mL/min/1.73m2 Severe Kidney Disease: Estimated GFR < 15 mL/min/1.73m2 Glucose Fasting 97 60-99 mg/dL Calcium 9.5 8.4-10.2 mg/dL Bilirubin Total 0.6 0.0-1.0 mg/dL Aspartate Amino Transferase 27 5-31 U/L Alanine Aminotransferase 23 0-31 U/L Total Protein 7.4 6.5-8.0 g/dL Albumin Level 4.3 3.5-5.0 g/dL Alkaline Phosphatase 51 39-117 U/L Lipid Panel (Not yet reviewe d by provider) Interpretation: Performing Lab:[facility], [address] [place] [phone] Notes/Report: Triglycerides 87 <150 mg/dL Desirable Triglyceride: less than 150 mg/dL Borderline High Triglyceride 150-199 mg/dL High Triglyceride: 200-499 mg/dL Very High Triglyceride: greater than or equal to 5OO mg/dL Cholesterol 267 <200 mg/dL Desirable Cholesterol: less than 200 mg/dL Borderline High Cholesterol: 200-239 mg/dL High Cholesterol: greater than 239 mg/dL LDL Cholesterol Calculated 162 <100 mg/dL Desirable LDL: less than 100 mg/dL Near Optimal/Above Optimal LDL: 110-129 mg/dL Borderline High LDL: 130-159 mg/dL High LDL: 160-189 mg/dL Very High LDL: greater than or equal to 190 mg/dL HDL Cholesterol 88 >40 mg/dL Desirable HDL: greater than 40 mg/dL Note: This HDL assay may give artificially low results in patients with liver disease. UA ClnCatch+Micro w/rflx Cul t (Not yet reviewed by provider) Interpretation: Performing Lab:[facility], [address] [place] [phone] Notes/Report: Urine, Clean Catch Color Urine Yellow Appearance Urine Hazy PH 7.5 5.0-9.0 Glucose Urine UA Negative Negative mg/dL Urine Blood Small (1+) Negative Specific Meyers Chuck - Urine <= 1.005 1.005-1.025 Urine Protein Negative Neg-Trace mg/dL Urine Ketones Negative Negative mg/dL Nitrite Urine Negative Negative Leukocyte Esterase Urine Small (1+) Negative RBC Urine >20 0-2 /HPF WBC Urine 0-5 0-5 /HPF Squamous Epithelial Cell Urine 0-2 0-2 /HPF Bacteria Urine None Seen None Seen Hyaline Casts Urine 0-2 0-2 /LPF REASON FOR VISIT FASTING LABS Encounters Encounter Location Date Provider Diagnosis Jesus Manuel Garcia MD [address] [place] [address] Drive [address] [place], [place] [phone] 12/01/2024 Jesus Manuel Garcia Blood tests for routine general physical examination Z00.00 ; Hypertension I10 and Elevated LDL cholesterol level E78.00 Assessments Encounter Date Diagnosis (ICD Code) Assessment Notes Treatment Notes Treatment Clinical Notes Section Notes 12/01/2024 Blood tests for routine general physical examination (ICD-10 - Z00.00) 12/01/2024 Hypertension (ICD-10 - I10) 12/01/2024 Elevated LDL cholesterol level (ICD-10 - E78.00) Plan Of Treatment Pending Test Test Name Order Date Complete Blood Count Auto Diff Comprehensive [place]. Panel Fast Lipid Panel 12/01/2024 UA ClnCatch+Micro w/rflx Cult 12/01/2024 Next Appt Details Provider Name:Jesus Manuel Mckeon ier, 12/08/2024 01:00:00 PM, [address], [address], [place], [place], [phone], Progress Notes * Katerine CORMIER ADOB: [birth year] (69 yo F)Acc No.[id number]:12/01/2024 Progress Note Patient:?Katerine CORMIER A Provider:?Jesus Manuel Garcia MD :1955???Age:69 Y???Sex:Female D ate:12/01/2024 Address:[address] [place], [place] [id number] Subjective: * Chief Complaints: * ???1. FASTING LABS. * Medical History:? Objective: * Vitals:? Assessment: * Assessment: 1.?Blood tests for routine g eneral physical examination - Z00.00 (Primary)???2.?Hypertension - I10???3.?Elevated LDL cholesterol level - E78.00??? Plan: * Treatment: 2.?Hypertension?LAB: Complete Blood Count Auto Diff (Collection Date & Time - 12/01/2024 07:45 AM) ?LAB: Comprehensive [place]. Panel Fast (Collection Date & Time - 12/01/2024 07:45 AM) ?LAB: Lipid Panel (Collection Date & Time - 12/01/2024 07:45 AM) ?LAB: UA ClnCatch+Micro w/rflx Cult (Collection Date & Time - 12/01/2024 07:45 AM) 3.?Elevated LDL cholesterol level?LAB: Complete Blood Count Auto Diff (Collection Date & Time - 12/01/2024 07:45 AM) ?LAB: Comprehensive [place]. Panel Fast (Collection Date & Time - 12/01/2024 07:45 AM) ?LAB: Lipid Panel (Collection Date & Time - 12/01/2024 07:45 AM) ?LAB: UA ClnCatch+Micro w/rflx Cult (Collection Date & Time - 12/01/2024 07:45 AM) * Procedure Codes:?13488 VENIP UNCT, ROUTINE* * * The named appointment provid er may or may not be the originator of this progress note, and it is not deemed complete until electronically signed by the appointment provider. Sign off status: Pending * Provider:?Jesus Manuel Garcia MD Date:?0 12/01/2024 Generated for Paco orourke/Dony/Krystinaitting on:?12/01/2024 11:10 AM EDT
== END 2024-12-01 09:55 | disposition home or self-care (01) ==
LOC: HO.LNP 09:54
PROVIDERS: Visit Provider Internal Medicine
DX: Z00.00 Encounter for general adult medical examination without abnormal findings (principal); I10 Essential (primary) hypertension; E78.00 Pure hypercholesterolemia, unspecified
CPT/HCPCS: 80053; 80061; 81001; 85025; 87086